=== PATIENT | male | born 1965 | race Caucasian/White ===

== ENCOUNTER 2019-02-09 01:27 | Emergency (ER) | payer OTHER ==
[2019-02-09 01:40] VITALS: TEMP 98.3
[2019-02-09] MEDS ORDERED: FLUORESCEIN STRIPS 1 MG STRIP LEFT EYE ONE (02:12)
--- NOTE | 2019-02-09 02:40 | ED ---
General Adult HPI - General Chief complaint: Shortness of Breath Stated complaint: [facility] inhaled chemical Time Seen by Provider: 02/09/19 01:44 Source: patient Mode of arrival: ambulatory Limitations: no limitations - History of Present Illness Initial comments: Him is a 53-year-old male presents the emergency department today via private vehicle from his work for evaluation of possible chemical exposure. Patient reports he works at a [employer] he. He reports that he was exposed to a plastic called Acetal when he did admit some aldehyde. Patient reports that he was inadvertently exposed to gas due to the heating of this product 2 times today. He reports the Easter exposure was only a matter of seconds. Patient reports that when he was exposed to this he had burning of his eyes and feels as though his lungs were burned. He reports that for the past 3 hours he's continued to have some burning of his eyes and became concerned about this exposure so he came to the ER for evaluation. Patient denies any shortness of breath chest pain or palpitations he denies any cardiac or pulmonary history. He is not a smoker. - Related Data Allergies Allergy/AdvReac Type Severity Reaction Status Date / Time No Known Allergies Allergy Verified 02/09/19 01:39 Review of Systems ROS Statement: Those systems with pertinent positive or pertinent negative responses have been documented in the HPI. ROS Other: All systems not noted in ROS Statement are negative. Past Medical History Past Medical History: Pulmonary Embolus (PE) History of Any Multi-Drug Resistant Organisms: None Reported Additional Past Surgical History / Comment(s): eye sugery Past Psychological History: No Psychological Hx Reported Smoking Status: Never smoker Past Alcohol Use History: Rare Past Drug Use History: None Reported General Exam - General Exam Comments Initial Comments: Physical Exam GENERAL: Patient is well-developed and well-nourished. Patient is nontoxic and well-hydrated and is in no distress. HENT: Normocephalic, Atraumatic. EYES: PERRL, EOMI Forcing exam with no signs of corneal abrasion, injury or keratitis. Sidel sign negative. PULMONARY: Unlabored respirations. No audible rales rhonchi or wheezing was noted. CARDIOVASCULAR: There is a regular rate and rhythm without any murmurs gallops or rubs. ABDOMEN: Soft and nontender with normal bowel sounds. SKIN: Skin is clear with no lesions or rashes and otherwise unremarkable. : Deferred NEUROLOGIC: Patient is alert and oriented x3. Moving all extremities spontaneously MUSCULOSKELETAL: Normal extremities with adequate strength and full range of motion. No lower extremity swelling or edema. No calf tenderness. PSYCHIATRIC: Normal psychiatric evaluation. Limitations: no limitations Limitations: no limitations Course Vital Signs 02/09/19 02/09/19 01:35 02:56 Temperature 98.3 F 98.3 F Pulse Rate 73 81 Respiratory 18 19 Rate Blood Pressure 108/70 110/84 O2 Sat by Pulse 97 98 Oximetry Medical Decision Making - Medical Decision Making Patient was seen and evaluated, history was obtained from the patient Patient with exposure to a heated plastic with concern for exposure to formaldehyde Physical exam is unremarkable patient with no wheezing no obvious injuries this happened 3 hours prior to arrival Poison control was contacted they recommended fresh air and supportive care Foreseen exam of the eyes revealed no uptake or signs of corneal injury Patient comfortable with plan for discharge home All questions pertaining to care were answered and the patient was discharged in stable condition. Disposition Clinical Impression: Chemical exposure of eye Disposition: HOME SELF-CARE Instructions (If sedation given, give patient instructions): Smoke Inhalation (ED) Additional Instructions: Poison control recommends getting plenty of fresh air Is patient prescribed a controlled substance at d/c from ED?: No Referrals: None,Stated [Primary Care Provider] - 1-2 days
[2019-02-09 03:16] VITALS: BP 110/84; PULSE 81; RESP 19
== END 2019-02-09 03:00 | disposition home or self-care (01) ==
LOC: EC 01:27
DX: Z77.098 Contact with and (suspected) exposure to other hazardous, chiefly nonmedicinal, chemicals (principal); Z86.711 Personal history of pulmonary embolism
CPT/HCPCS: 99284